=== PATIENT | female | born 1965 ===

== ENCOUNTER 2025-06-13 16:17 | Outpatient (AMB) | payer OTHER, SELFPAY | END 2025-06-13 16:28 | disposition home or self-care (01) | LOC: HO.HMGAL 16:17 | PROVIDERS: PCP Internal Medicine; Visit Provider Registered Nurse Emergency | DX: J30.89 Other allergic rhinitis (principal) | CPT/HCPCS: 95117; 95165 ==

== ENCOUNTER 2025-08-02 15:13 | Outpatient (AMB) | payer OTHER, SELFPAY | END 2025-08-02 15:14 | disposition home or self-care (01) | LOC: HO.HMGAL 15:13 | PROVIDERS: PCP Family Medicine; Visit Provider Registered Nurse Emergency | DX: J30.89 Other allergic rhinitis (principal) | CPT/HCPCS: 95117; 95165 ==